=== PATIENT | female | born 1995 | race Caucasian/White ===

== ENCOUNTER 2025-05-04 07:05 | Inpatient (IN) | payer OTHER ==
[2025-05-04] MEDS ORDERED: OXYTOCIN 30 UNITS in 0.9% NS 30 UNIT/500 ML INFUS.BAG IVPB ONE (09:41)
[2025-05-04] MEDS: ELECTROLYTE-148 SOLN 1,000 ML IV SCH (10:00)
[2025-05-04] MEDS: OXYTOCIN 30 UNITS in 0.9% NS 30 UNIT/500 ML INFUS.BAG IVPB SCH (10:15)
[2025-05-04 10:34] LABS: ABSOLUTE IMMATURE GRANULOCYTES 0.08 x10^3/uL (0.0-0.031); BASOPHILS # 0.04 x10^3/uL (0.01-0.08); EOSINOPHIL % 2.9 % (0.7-5.8); HEMATOCRIT 35.8 % (34.1-44.9); HEMOGLOBIN 12.4 g/dL (11.2-15.7); MCHC 34.6 g/dl (32.2-35.5); MEAN CELL VOLUME 89.7 fl (79.4-94.8); MEAN PLT VOLUME 10.5 fl (9.4-12.3); MONOCYTE % 4.4 % (4.7-12.5); PLATELET COUNT 236 x10^3/uL (182-369); RDW 12.6 % (12.1-16.8)
[2025-05-04 10:40] LABS: INR 0.97 (0.83-1.09); PROTHROMBIN TIME (PATIENT) 10.6 SEC (9.7-13.0)
[2025-05-04 10:43] LABS: ACTIVATED PTT 25.8 SECONDS (25.2-36.5)
[2025-05-04 10:49] VITALS: BMI 36.0
[2025-05-04 10:54] LABS: POTASSIUM 3.4 mmol/L (3.5-5.1)
[2025-05-04 10:55] LABS: CALCIUM 8.9 mg/dL (8.5-10.1)
[2025-05-04 10:56] LABS: BLOOD UREA NITROGEN 6.7 mg/dL (7-18)
[2025-05-04 10:59] LABS: CREATININE 0.6 mg/dL (0.55-1.3)
[2025-05-04] MEDS ORDERED: BUTORPHANOL TARTRATE 2 MG/ML VIAL IVPB PRN (11:55)
[2025-05-04] MEDS ORDERED: FENTANYL/BUPIVACAINE/NS/PF - PCEA - 50 ML DISP.SYRIN EP ONE ×2 (16:59→20:55)
[2025-05-04] MEDS: FENTANYL/BUPIVACAINE/NS/PF - PCEA - 50 ML DISP.SYRIN EP SCH (17:30)
[2025-05-04] MEDS ORDERED: NALOXONE HCL 0.4 MG/ML VIAL IVPUSH PRN (17:39)
[2025-05-04] MEDS ORDERED: OXYTOCIN 20 UNITS in 0.9% NS 20 UNIT/1,000 ML INFUS.BAG IV ONE (20:25)
[2025-05-04] MEDS: D5W-LR W/ 20 UNITS OXYTOCIN 20 UNIT/1,000 ML INFUS.BAG IV ONE (22:10)
[2025-05-04 22:31] LABS: CORD BASE EXCESS -3.9 mmol/L (0-2); CORD PCO2 37.9 mmHg (30-78); CORD pH 7.361 (7.14-7.44)
[2025-05-04] MEDS: METHYLERGONOVINE MALEATE 0.2 MG/1 ML AMP IM PRN (23:45)
[2025-05-05] MEDS ORDERED: ACETAMINOPHEN 325 MG TABLET (FP) ONE (00:34)
[2025-05-05] MEDS: ACETAMINOPHEN 325 MG TABLET (FP) PO ONE (00:40)
[2025-05-05] MEDS: ACETAMINOPHEN 650 MG/20.3 ML ORAL SOLUTION (CUPS) PO ONE (00:40)
[2025-05-05] MEDS ORDERED: SENNOSIDES/DOCUSATE COMBO (SENNA PLUS) TABLET (UD) PO PRN (00:44)
[2025-05-05] MEDS ORDERED: WITCH HAZEL 50% (TUCKS) 40 PAD/JAR PAD TP PRN (00:45)
[2025-05-05] MEDS ORDERED: BENZOCAINE 28 GM HEMORRHOIDAL OINTMENT RC PRN (00:45)
[2025-05-05] MEDS ORDERED: BENZOCAINE 20% 57 GM BOTTLE TP PRN (00:45)
[2025-05-05] MEDS ORDERED: BISACODYL 10 MG SUPP.RECT PR PRN (00:47)
[2025-05-05] MEDS: METHYLERGONOVINE MALEATE 0.2 MG/1 ML AMP IM ONE (02:30)
[2025-05-05] MEDS: OXYTOCIN 20 UNITS in 0.9% NS 20 UNIT/1,000 ML INFUS.BAG IV SCH (02:49)
[2025-05-05] MEDS: oxyCODONE HCL 5 MG TABLET PO PRN (03:30)
[2025-05-05 08:13] LABS: ABSOLUTE IMMATURE GRANULOCYTES 0.08 x10^3/uL (0.0-0.031); BASOPHILS # 0.04 x10^3/uL (0.01-0.08); EOSINOPHIL % 0.9 % (0.7-5.8); EOSINOPHILS # 0.15 x10^3/uL (0.04-0.36); HEMATOCRIT 33.1 % (34.1-44.9); HEMOGLOBIN 11.3 g/dL (11.2-15.7); MCHC 34.1 g/dl (32.2-35.5); MEAN CELL VOLUME 90.9 fl (79.4-94.8); MEAN PLT VOLUME 11.3 fl (9.4-12.3); MONOCYTE # 1.07 x10^3/uL (0.24-0.86); MONOCYTE % 6.5 % (4.7-12.5); PLATELET COUNT 216 x10^3/uL (182-369); RDW 12.5 % (12.1-16.8)
[2025-05-05] MEDS: IBUPROFEN 600 MG TABLET (FP) PO PRN (10:00)
[2025-05-05] MEDS: PROMETHAZINE HCL 25 MG/1 ML VIAL IVPB ONE (10:17)
[2025-05-05] MEDS: FENTANYL/BUPIVACAINE/NS/PF - PCEA - 50 ML DISP.SYRIN EP SCH (10:18)
[2025-05-05] MEDS: ACETAMINOPHEN 325 MG TABLET (FP) PO PRN (11:26)
[2025-05-05] MEDS: PRENATAL VITAMINS W/ FOLIC ACID TABLET (FP) PO SCH (11:27)
[2025-05-05] MEDS: FERROUS SO4 325 MG TABLET (FP) PO SCH (11:27)
[2025-05-05] MEDS: AMOX TR/POT CLAV 500MG/125MG TABLETS (FP) PO SCH (17:56)
[2025-05-06 07:54] LABS: ABSOLUTE IMMATURE GRANULOCYTES 0.12 x10^3/uL (0.0-0.031); BASOPHILS # 0.06 x10^3/uL (0.01-0.08); EOSINOPHIL % 3.5 % (0.7-5.8); EOSINOPHILS # 0.53 x10^3/uL (0.04-0.36); HEMATOCRIT 30.2 % (34.1-44.9); HEMOGLOBIN 10.2 g/dL (11.2-15.7); MCHC 33.8 g/dl (32.2-35.5); MEAN CELL VOLUME 92.6 fl (79.4-94.8); MEAN PLT VOLUME 10.8 fl (9.4-12.3); MONOCYTE # 0.83 x10^3/uL (0.24-0.86); MONOCYTE % 5.5 % (4.7-12.5); PLATELET COUNT 215 x10^3/uL (182-369); RDW 13.2 % (12.1-16.8)
[2025-05-06 10:22] VITALS: BP 114/60; PULSE 72; RESP 17; TEMP 98.4
== END 2025-05-06 13:00 | disposition home or self-care (01) | DRG 560 ==
LOC: JLDR 07:05 → J3W 05-05 00:56
PROVIDERS: ADMIT Obstetrics & Gynecology; ATTEND Obstetrics & Gynecology
PROC: 10E0XZZ Delivery of Products of Conception, External Approach (ICD-10-PCS; principal; 2025-05-04)
DX: O80 Encounter for full-term uncomplicated delivery (principal); Z3A.39 39 weeks gestation of pregnancy; Z37.0 Single live birth
CPT/HCPCS: 36415; 36600; 59409; 80048; 82803; 85025; 85610; 85730; 86780; 86850; 86900; 86901